=== PATIENT | male | born 1970 | race Caucasian/White ===

== ENCOUNTER 2016-05-31 17:50 | Emergency (ER) | payer BC ==
[2016-05-31 18:06] VITALS: RESP 18
[2016-05-31] MEDS ORDERED: DIPH,PERTUS(ACELL)TETVAC-LF 0.5 ML VIAL IM ONE (18:12)
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
--- NOTE | 2016-05-31 19:53 | XR ---
EXAMINATION TYPE: XR pelvis AP view DATE OF EXAM: 05/31/2016 7:32 PM COMPARISON: NONE HISTORY: Pain TECHNIQUE: AP pelvis FINDINGS: No acute fractures are evident. Sacroiliac joints and symphysis pubis are normal. Femoral h david articulate with the acetabulum. Bowel gas pattern is normal. IMPRESSION: 1. Normal AP pelvis.
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
[2016-05-31 21:01] VITALS: BP 135/78; PULSE 66; TEMP 98.2
== END 2016-05-31 21:00 | disposition home or self-care (01) ==
LOC: EC 17:50
DX: S42.032A Displaced fracture of lateral end of left clavicle, initial encounter for closed fracture (principal); S01.01XA Laceration without foreign body of scalp, initial encounter; S80.212A Abrasion, left knee, initial encounter; S80.211A Abrasion, right knee, initial encounter; Z23 Encounter for immunization; Z87.891 Personal history of nicotine dependence; V18.4XXA Pedal cycle driver injured in noncollision transport accident in traffic accident, initial encounter; Y92.410 Unspecified street and highway as the place of occurrence of the external cause
CPT/HCPCS: 12001; 70450; 71010; 72125; 72170; 90471; 90715; 99284

== ENCOUNTER → 2018-07-03 | Outpatient (CLI) | payer BC ==
--- NOTE | 2018-07-03 18:32 | EST ---
EXERCISE STRESS DATE OF SERVICE: 07/03/2018 AGE: 48 SEX: Male HT: 75 WT: 182 PROTOCOL: [employer] STAGE: 4 DURATION OF EXERCISE: 9:30 HEART RATE REST: 66 BLOOD PRESSURE REST: 151/90 MAXIMUM HEART RATE ACHIEVED: 146 MAXIMUM BLOOD PRESSURE: 241/83 85% MPHR: 145 100% MPHR: 170 METS: 11.1 INDICATIONS: Chest pain. CLINICAL INFORMATION: STRESS DATA: Heart rate 66, pressure 151/90 mmHg. Baseline EKG showed sinus mechanism. The patient exercised on the treadmill according to [employer] protocol for a total of 9 minutes and achieved 11 METS with max heart rate of 146, which is about 85% of maximum predicted heart rate. Maximum blood pressure was 241/83 mmHg. Clinically the patient did not have any symptoms and the EKG did not show any significant ST or T-wave abnormalities concerning for ischemia. CONCLUSION: 1. Excellent exercise tolerance. 2. Normal EKG in response to exercise. 3. Essentially normal stress test for the patient. MMODL / IJN: [id number] /
== END | disposition home or self-care (01) ==
LOC: RADNMMAIN 10:38
PROVIDERS: ATTEND Family Medicine
DX: Z13.6 Encounter for screening for cardiovascular disorders (principal); Z82.49 Family history of ischemic heart disease and other diseases of the circulatory system
CPT/HCPCS: 93017